=== PATIENT | male | born 1970 | race Caucasian/White ===

== ENCOUNTER 2016-10-10 15:29 | Emergency (ER) | payer BC ==
[2016-10-10 15:38] VITALS: RESP 16
[2016-10-10] MEDS ORDERED: LIDOCAINE 2% JELLY 5 ML TUBE TP ONE (15:40)
--- NOTE | 2016-10-10 16:21 | UCPHY ---
H & P Time Seen by Provider: 10/10/16 16:02 Patient Type: New HPI/ROS: This patient fell down 2 stairs landing on his back with an abrasion and underlying tenderness to the paraspinous region right midback. He explains that the steroids were wooden stairs. He in his will leave later this week for international vacation so he wound be checked prior to leaving town. He reports the pain is mild to moderate. The injury occurred at 2:45 p.m. day of evaluation. He reports slightly more pain with movement with no other exacerbating factors. ROS: No midline pain. No other musculoskeletal injuries from the fall. HEENT: No trauma. He reports on neuro ROS no symptoms including no numbness tingling or weakness. 7 point ROS is otherwise negative. Past Medical/Surgical History: Otherwise healthy Smoking Status: Former smoker Physical Exam: General Appearance: Alert, no distress. Eyes: Pupils equal and round no pallor or injection. ENT, atraumatic Respiratory: There are no retractions, lungs are clear to auscultation. Cardiovascular: Regular rate and rhythm. Gastrointestinal: Abdomen is soft and nontender Neurological: GCS 15 with no sensory deficits in upper lower extremities. Skin: Warm and dry, no rashes. There is a superficial abrasion that is palm sized to the right paraspinous mid back region overlying the paraspinous muscles. Musculoskeletal: Neck is supple nontender. Back: No midline tenderness. There is mild tenderness underlying the abrasion to the right mid back as described above. There is no significant muscle spasm. Retains good range of motion of his back without significant pain. I can compresses ribs without significant pain Extremities are symmetrical, full range of motion. Psychiatric: Mood and affect normal DIFFERENTIAL DIAGNOSIS: After history and physical exam differential diagnosis was considered for abrasion with underlying contusion, muscle injury, nondisplaced rib fracture Constitutional: Initial Vital Signs Temperature (C) 36.4 C 10/10/16 15:31 Heart Rate 60 10/10/16 15:31 Respiratory Rate 16 10/10/16 15:31 Blood Pressure 130/78 H 10/10/16 15:31 O2 Sat (%) 98 10/10/16 15:31 O2 Delivery Mode Room Air Allergies/Adverse Reactions: No Known Allergies Allergy (Verified 10/10/16 15:38) Home Medications: Medication Instructions Recorded No Medications [NO HOME 1 ea MISC 09/28/10 MEDICATIONS] MDM/Departure - MDM Medications Given: Discontinued Medications Lidocaine (Lidocaine 2% Jelly) 1 michelle TP EDNOW ONE Stop: 10/10/16 15:41 Last Admin: 10/10/16 15:44 Dose: 1 michelle ED Course/Re-evaluation: Patient's abrasions clean. I counseled regarding abrasion and contusion. I think chances of underlying rib injury or other bony injury or unlikely given his clinical findings and patient is comfortable proceeding with outpatient care without having further workup at this time. He has no concerning findings on exam. - Depart Disposition: Home, Routine, Self-Care Clinical Impression: Back abrasion Qualifiers: Encounter type: initial encounter Laterality: right Qualified Code(s): S20.411A - Abrasion of right back wall of thorax, initial encounter Back contusion Qualifiers: Encounter type: initial encounter Laterality: right Qualified Code(s): S20.221A - Contusion of right back wall of thorax, initial encounter Condition: Good Instructions: Abrasion (ED) Additional Instructions: Diagnoses: 1. Back abrasion 2. Back contusion Plan ibuprofen and Tylenol for discomfort Leave Tegaderm in place for a few days at a time and then remove, clean with warm soapy water and reapply Tegaderm until the abrasion has healed. Return to see a physician if he develops redness concerning for infection, discharge or other concerns. Referrals: Francisco Brand MD [Primary Care Provider] - As per Instructions - PQRS PQRS Measurement: NA
[2016-10-10 16:27] VITALS: BP 128/76; PULSE 61; TEMP 97.9; O2SAT 96
== END 2016-10-10 16:30 | disposition home or self-care (01) ==
LOC: CED 15:29
DX: S20.221A Contusion of right back wall of thorax, initial encounter (principal); W10.9XXA Fall (on) (from) unspecified stairs and steps, initial encounter; Y92.019 Unspecified place in single-family (private) house as the place of occurrence of the external cause
CPT/HCPCS: G0463-PO

== ENCOUNTER → 2017-08-11 | Outpatient (CLI) | payer BC, OTHER | LOC: BMCIMAGING 13:50 | PROVIDERS: ATTEND Family Medicine | DX: J84.10 Pulmonary fibrosis, unspecified (principal) ==

== ENCOUNTER → 2018-10-10 | Outpatient (CLI) | payer OTHER ==
[~2018-10-10] MED LIST: IOPAMIDOL (ISOVUE-300) 100 ML BTL ONE
== END ==
LOC: CIMAGING 08:18
PROVIDERS: ATTEND Internal Medicine
DX: Z00.00 Encounter for general adult medical examination without abnormal findings (principal)
CPT/HCPCS: 74177-PO; Q9967